=== PATIENT | female | born 1960 | race Caucasian/White ===

== ENCOUNTER 2018-05-15 09:48 | Emergency (ER) | payer BC ==
--- OUTSIDE RECORDS SUMMARY | 2018-05-15 09:50 | XMS REPORT | Clinical Summary ---
:1960 Author Organization [facility] Address [address] [place] [address] Care Team Providers Name Role Phone Warren Gar MD Primary Care Provider Allergies Active Allergy Reactions Severity Noted Date Comments No Known Drug Allergies Medications Medication Sig Dispensed Refills Start Date End Date Status LIALDA 1.2 gram EC TK 1 T PO QD 5 11/03/2016 Active tablet aspirin (ECOTRIN) 81 Take 81 mg by 0 Active MG enteric coated mouth daily. tablet atorvastatin Take 1 tablet 90 tablet 2 02/10/2017 Active (LIPITOR) 10 MG (10 mg total) tablet by mouth daily. TEKTURNA 150 mg TAKE 1 TABLET 90 tablet 3 10/21/2017 Active tabletIndications: BY MOUTH Essential EVERY DAY hypertension aliskiren (TEKTURNA) Take 1 tablet 30 tablet 12 12/08/2016 10/21/2017 Discontinued 150 MG (150 mg tabletIndications: total) by Essential mouth daily. hypertension levothyroxine Take 1 tablet 90 tablet 3 01/06/2017 01/06/2018 (SYNTHROID) 75 mcg (75 mcg tabletIndications: total) by Postablative mouth daily. hypothyroidism, Thyroid nodule Active Problems Problem Noted Date Postablative hypothyroidism 12/08/2016 Thyroid nodule 12/08/2016 Essential hypertension 12/08/2016 Pure hypercholesterolemia 12/08/2016 Encounters Date Type Specialty Care Team Description 10/21/2017 Refill Cardiology Maximo Victoria, Med Refill 06/08/2017 Office Visit Cardiology Maximo Victoria, Essential hypertension (Primary Dx); Pure hypercholesterolemia after 05/14/2017 Family History Medical History Relation Name Comments Heart disease Father Stroke Father Cancer Mother colon Relation Name Status Comments Father Mother thyroidectomy Social History Tobacco Use Types Packs/Day Years Used Date Never Smoker Smokeless Tobacco: Never Used Alcohol Use Drinks/Week oz/Week Comments No Sex Assigned at Date Recorded Not on file Job Start Date Occupation Industry Not on file Not on file Not on file Travel History Travel Start Travel End No recent travel history available. Last Filed Vital Signs Vital Sign Reading Time Taken Blood Pressure 124/71 06/08/2017 9:58 AM [facility] Pulse 69 06/08/2017 9:58 AM [facility] Temperature - - Respiratory Rate - - Oxygen Saturation - - Inhaled Oxygen Concentration - - Weight 139 kg (306 lb) 06/08/2017 9:58 AM [facility] Height 177.8 cm (5' 10") 06/08/2017 9:58 AM [facility] Body Mass Index 43.91 06/08/2017 9:58 AM [facility] Plan of Treatment Date Type Specialty Care Team Description 06/07/2018 Office Visit [place] [address] [address] Health Maintenance Due Date Last Done Comments CERVICAL CANCER SCREENING 1983 BREAST CANCER SCREENING 02/13/2012 COLON CANCER SCREENING 02/13/2012 SHINGLES VACCINES (1 of 2) 02/13/2012 INFLUENZA VACCINE 12/22/2017 Results Not on fileafter 05/14/2017 Insurance Payer Benefit Plan / Group Subscriber ID Type Phone Address BCBS BCBS CHOICE PPO/F[employer]ERAL EMPL PPO xxxxxxxxxxxx PPO ([place]) [place] [address] Advance Directives Patient has advance care planning documents on file. For more information, please contact:[facility] [place] [id number]
[2018-05-15] MEDS ORDERED: TETANUS & DIPHTHERIA TOX,ADULT 0.5 ML VIAL ONE (10:38)
[2018-05-15] MEDS ORDERED: LIDOCAINE 1% MPF 5 ML VIAL ONE (10:38)
--- NOTE | 2018-05-15 11:38 | ER ---
Nurse's Notes [facility] Name: Madison Ron Age: 58 yrs Sex: Female : 1960 Arrival Date: 05/15/2018 Time: 09:48 Bed 11 Private MD: Panda Gar B Diagnosis: Laceration without foreign body of right thumb without damage to nail Presentation: 05/15 09:56 Presenting complaint: Patient states: I cut my right thumb with a knife while I was la1 doing the dishes, its right across the pad. Transition of care: patient was not received from another setting of care. Onset of symptoms was May 15, 2018. Risk Assessment: Do you want to hurt yourself or someone else? Patient reports no desire to harm self or others. Initial Sepsis Screen: Does the patient meet any 2 criteria? No. Patient's initial sepsis screen is negative. Does the patient have a suspected source of infection? No. Patient's initial sepsis screen is negative. Care prior to arrival: None. 09:56 Method Of Arrival: Ambulatory la1 09:56 Acuity: LIVAN 4 la1 Historical: - Allergies: 09:56 No Known Allergies; la1 - PMHx: 09:56 Hypertension; la1 - PSHx: 09:56 foot surgery; Tonsillectomy; la1 - Immunization history:: Adult Immunizations up to date. - Social history:: Smoking status: unknown. - Ebola Screening: : No symptoms or risks identified at this time. Screenin:02 Abuse screen: Denies threats or abuse. Nutritional screening: No deficits noted. la1 Tuberculosis screening: No symptoms or risk factors identified. Fall Risk None identified. Assessment: 10:01 General: Appears in no apparent distress. Behavior is calm, cooperative. Pain: la1 Complains of pain in palmar aspect of distal phalanx of right thumb. Neuro: Level of Consciousness is awake, alert, obeys commands, Oriented to person, place, time, situation. Cardiovascular: Capillary refill < 3 seconds Patient's skin is warm and dry. Respiratory: Airway is patent Respiratory effort is even, unlabored, Respiratory pattern is regular, symmetrical. GI: No signs and/or symptoms were reported involving the gastrointestinal system. : No signs and/or symptoms were reported regarding the genitourinary system. Injury Description: Laceration sustained to palmar aspect of distal phalanx of right thumb is 2.6 to 7.5 cm long, was sustained less than 30 minutes ago. a small amount of bleeding noted at this time. 11:23 Reassessment: Patient appears in no apparent distress at this time. Patient and/or iw family updated on plan of care and expected duration. Pain level reassessed. Patient is alert, oriented x 3, equal unlabored respirations, skin warm/dry/pink. Vital Signs: 09:58 Pulse 87; Resp 18; Temp 97.3; Pulse Ox 98% on R/A; Weight 113.4 kg; Height 5 ft. 4 in. la1 (162.56 cm); Pain 7/10; 09:59 BP 131 / 91; la1 09:58 Body Mass Index 42.91 (113.40 kg, 162.56 cm) la1 ED Course: 09:48 Patient arrived in ED. mr 09:49 Panda Gar MD is Private Physician. mr 09:57 Triage completed. la1 09:57 Arm band placed on left wrist. la1 10:01 Isaac Em RN is Primary Nurse. la1 10:02 Amrit Cesar NP is PHCP. pm1 10:02 Alan Ortega MD is Attending Physician. pm1 10:02 Call light in reach. la1 11:16 Hand Right 3 View XRAY In Process Unspecified. EDMS 11:37 Panda Gar MD is Referral Physician. pm1 Administered Medications: 10:41 Drug: Tetanus-Diphtheria Toxoid Adult 0.5 ml {Utilization Management Um Nurse: [employer]. Exp: iw 06/11/2020. Lot #: [id number]. } Route: IM; Site: left deltoid; 11:50 Drug: Lidocaine (1 %) 5 ml Volume: 5 ml; Route: Infiltration; iw Outcome: 11:37 Discharge ordered by MD. pm1 12:17 Patient left the ED. Signatures: Dispatcher [employer] [place] Mesha Aleman Irene, RN RN Isaac Em RN RN la1 Amrit Cesar NP EMAIL PRODUCTION CONSULTANT pm1
--- NOTE | 2018-05-15 11:38 | EDPHYS ---
Physician Documentation [facility] Name: Madison Ron Age: 58 yrs Sex: Female : 1960 Arrival Date: 05/15/2018 Time: 09:48 Bed 11 Private MD: Panda Gar B ED Physician Alan Ortega HPI: 05/15 11:35 This 58 yrs old Female presents to ER via Ambulatory with complaints of Thumb pm1 Laceration. 11:35 The patient or guardian reports a laceration. The complaints affect the palmar aspect pm1 of distal phalanx of right thumb. Context: The problem was sustained at home, resulted from accidentally cut her finger on knife that was in the sink. Onset: The symptoms/episode began/occurred just prior to arrival. Modifying factors: The symptoms are alleviated by pressure to area, the symptoms are aggravated by nothing. Associated signs and symptoms: Pertinent negatives: cyanosis distally, decreased sensation distally, numbness distally, tingling distally. The patient has not recently seen a physician. Historical: - Allergies: 09:56 No Known Allergies; la1 - PMHx: 09:56 Hypertension; la1 - PSHx: 09:56 foot surgery; Tonsillectomy; la1 - Immunization history:: Adult Immunizations up to date. - Social history:: Smoking status: unknown. - Ebola Screening: : No symptoms or risks identified at this time. ROS: 11:35 Constitutional: Negative for fever, chills, and weight loss, Eyes: Negative for injury, pm1 pain, redness, and discharge, ENT: Negative for injury, pain, and discharge, Neck: Negative for injury, pain, and swelling, Cardiovascular: Negative for chest pain, palpitations, and edema, Respiratory: Negative for shortness of breath, cough, wheezing, and pleuritic chest pain, Abdomen/GI: Negative for abdominal pain, nausea, vomiting, diarrhea, and constipation, Back: Negative for injury and pain, : Negative for injury, bleeding, discharge, and swelling. 11:35 Neuro: Negative for headache, weakness, numbness, tingling, and seizure. 11:35 MS/extremity: Positive for laceration, of the palmar aspect of distal phalanx of right thumb. 11:35 Skin: Positive for laceration(s), of the palmar aspect of distal phalanx of right thumb. Exam: 11:35 Constitutional: This is a well developed, well nourished patient who is awake, alert, pm1 and in no acute distress. Head/Face: Normocephalic, atraumatic. Chest/axilla: Normal chest wall appearance and motion. Nontender with no deformity. No lesions are appreciated. Cardiovascular: Regular rate and rhythm with a normal S1 and S2. No gallops, murmurs, or rubs. Normal PMI, no JVD. No pulse deficits. Respiratory: Lungs have equal breath sounds bilaterally, clear to auscultation and percussion. No rales, rhonchi or wheezes noted. No increased work of breathing, no retractions or nasal flaring. Back: No spinal tenderness. No costovertebral tenderness. Full range of motion. 11:35 Skin: Appearance: normal except for affected area, injury, laceration(s), the wound is approximately 2 cm(s), with a depth of 0.5 cm(s), of the palmar aspect of distal phalanx of right thumb. 11:35 Neuro: Orientation: is normal, Motor: is normal, moves all fours. Vital Signs: 09:58 Pulse 87; Resp 18; Temp 97.3; Pulse Ox 98% on R/A; Weight 113.4 kg; Height 5 ft. 4 in. la1 (162.56 cm); Pain 7/10; 09:59 BP 131 / 91; la1 09:58 Body Mass Index 42.91 (113.40 kg, 162.56 cm) la1 Laceration: 11:35 Wound Repair of 2cm ( 0.8in ) subcutaneous laceration to palmar aspect of distal pm1 phalanx of right thumb. Linear shaped.. Distal neuro/vascular/tendon intact. Anesthesia: Digital block administered with 2 mls of 1% lidocaine. Wound prep: Extensive cleansing with betadine by me, Wound irrigation with saline by me, Wound explored extensively, Copious irrigation. Skin closed with 8 5-0 Prolene using simple sutures and sterile technique. Dressed with tube gauze. Patient tolerated well. MDM: 10:11 Patient medically screened. pm1 11:35 Data reviewed: vital signs. Data interpreted: Pulse oximetry: on room air is 98 %. pm1 Interpretation: normal. Counseling: I had a detailed discussion with the patient and/or guardian regarding: the historical points, exam findings, and any diagnostic results supporting the discharge/admit diagnosis, radiology results, the need for outpatient follow up, a family practitioner, a hand specialist, evaluation and suture removal, to return to the emergency department if symptoms worsen or persist or if there are any questions or concerns that arise at home. 05/15 10:19 Order name: Hand Right 3 View XRAY; Complete Time: 11:56 pm1 05/15 10:18 Order name: Prolene, Sutures; Complete Time: 12:17 pm1 05/15 10:18 Order name: Dressing - Wound; Complete Time: 12:17 pm1 05/15 10:18 Order name: Gloves, Sterile; Complete Time: 12:17 pm1 05/15 10:18 Order name: Setup Suture Tray; Complete Time: 10:42 pm1 Administered Medications: 10:41 Drug: Tetanus-Diphtheria Toxoid Adult 0.5 ml {Senior Wealth Advisor: [employer]. Exp: iw 06/11/2020. Lot #: [id number]. } Route: IM; Site: left deltoid; 11:50 Drug: Lidocaine (1 %) 5 ml Volume: 5 ml; Route: Infiltration; Disposition: 05/15/18 11:37 Discharged to Home. Impression: Laceration without foreign body of right thumb without damage to nail. - Condition is Stable. - Discharge Instructions: Laceration Care, Adult. - Prescriptions for Keflex 500 mg Oral Capsule - take 1 capsule by ORAL route every 12 hours for 10 days; 20 capsule. Tylenol- Codeine #3 300-30 mg Oral Tablet - take 2 tablets by ORAL route every 6 hours As needed; 20 tablet. - Medication Reconciliation Form, Thank You Letter, Antibiotic Education, Prescription Opioid Use form. - Follow up: Emergency Department; When: As needed; Reason: Worsening of condition. Follow up: Panda Gar MD; When: 10 - 14 days; Reason: Recheck today's complaints, Continuance of care, Staple/Suture removal, Re-evaluation by your physician. - Problem is new. - Symptoms have improved. Addendum: 05/26/2018 15:25 Co-signature as Attending Physician, Alan Ortega MD Available for consultation at p s1 all times. . Signatures: Dispatcher [employer] Marge Damon, ABEL ROMAN iw Isaac Em RN RN la1 Amrit Cesar, AUTOMATIC MACHINES SUPERVISOR AUTOMATIC MACHINES SUPERVISOR pm1 Alan Ortega MD MD ps1 Corrections: (The following items were deleted from the chart) 05/15 12:17 11:37 05/15/2018 11:37 Discharged to Home. Impression: Laceration without foreign body iw of right thumb without damage to nail. Condition is Stable. Forms are Medication Reconciliation Form, Thank You Letter, Antibiotic Education, Prescription Opioid Use. Follow up: Emergency Department; When: As needed; Reason: Worsening of condition. Follow up: Panda Gar; When: 10 - 14 days; Reason: Recheck today's complaints, Continuance of care, Staple/Suture removal, Re-evaluation by your physician. Problem is new. Symptoms have improved. pm1
--- NOTE | 2018-05-15 11:49 | RAD REPORT ---
EXAM DESCRIPTION: RAD - Hand Right 3 View - 05/15/2018 11:16 am CLINICAL HISTORY: laceration Pain COMPARISON: No comparisons FINDINGS: Soft tissue laceration is seen in involving the right first digit. No fracture, dislocatio n or radiopaque foreign body.
[2018-05-15 14:51] VITALS: TEMP 97.3; O2SAT 98
[2018-05-15 14:52] VITALS: BP 131/91
== END 2018-05-15 12:17 | disposition home or self-care (01) ==
LOC: ER 09:48
PROC: 0JQJ0ZZ Repair Right Hand Subcutaneous Tissue and Fascia, Open Approach (ICD-10-PCS; principal; 2018-05-15)
DX: S61.011A Laceration without foreign body of right thumb without damage to nail, initial encounter (principal); W26.0XXA Contact with knife, initial encounter; Y93.G1 Activity, food preparation and clean up; Z23 Encounter for immunization
CPT/HCPCS: 90714; 99283